=== PATIENT | female | born 1975 | race Caucasian/White ===

== ENCOUNTER 2023-04-12 00:06 | Emergency (ER) | payer BC, OTHER ==
[~2023-04-12] VITALS: Ht 162.6 cm; Wt 54.4 kg
[2023-04-12] MEDS ORDERED: HYDROCODONE/APAP 5/325MG TABLET ONE ×2 (01:28→04:23)
[2023-04-12] MEDS ORDERED: HYDROCODONE/APAP 5/325MG TABLET PO ONE ×2 (01:30→04:30)
--- NOTE | 2023-04-12 01:30 | NUR ---
Pt is noted in bed alert, responsive as she came in C/O Left foot pain S/P Slipped in the pool. Pt care continue as awaits MD orders.
--- NOTE | 2023-04-12 02:00 | NUR ---
X-Ray done. Pt care continue.
[2023-04-12] MEDS ORDERED: MORPHINE SULFATE INJ 4 MG/ML DISP.SYRIN ONE (02:07)
--- NOTE | 2023-04-12 02:15 | NUR ---
Morphine 4mg IVP for pain 07/08 as [place] 5mg PO not effective. Pt care continue.
[2023-04-12] MEDS ORDERED: MORPHINE SULFATE INJ 2 MG/ML DISP.SYRIN IM ONE (02:30)
[2023-04-12] MEDS ORDERED: HYDR-3972 PO (04:12)
--- NOTE | 2023-04-12 04:32 | NUR ---
Pt is been discharge to home after been medicated with 5mg PO off [place] for left foot pain and all discharge instructions given.
[2023-04-12 04:34] VITALS: BP 101/68
== END 2023-04-12 04:35 | disposition home or self-care (01) ==
LOC: ER 00:10
DX: S93.492A Sprain of other ligament of left ankle, initial encounter (principal); W01.0XXA Fall on same level from slipping, tripping and stumbling without subsequent striking against object, initial encounter; Y93.89 Activity, other specified; Y92.89 Other specified places as the place of occurrence of the external cause; Y99.8 Other external cause status
CPT/HCPCS: 99283; 96372; 73610; J2270